=== PATIENT | male | born 1985 | race Asian ===

== ENCOUNTER 2024-11-09 17:23 | Emergency (ER) | payer BC ==
[~2024-11-09] VITALS: Ht 177.8 cm; Wt 70.0 kg
[2024-11-09 17:27] VITALS: O2SAT 98
[2024-11-09 17:35] VITALS: BP 143/91; PULSE 98; RESP 14; TEMP 37; O2SAT 98
== END 2024-11-09 19:41 | disposition home or self-care (01) ==
LOC: ER 17:23
DX: M79.662 Pain in left lower leg (principal); B34.9 Viral infection, unspecified
CPT/HCPCS: 93971; 99284